=== PATIENT | female | born 1985 | race Caucasian/White ===

== ENCOUNTER 2017-12-01 23:04 | Emergency (ER) | payer SELFPAY ==
[2017-12-01 23:06] VITALS: BMI 34.0
[2017-12-01 23:26] VITALS: BP 102/69; PULSE 71; RESP 18; TEMP 99.1; O2SAT 100
--- NOTE | 2017-12-01 23:52 | C.PDOC ---
History Of Present Illness 32 year old female presents to the emergency department with complaints of itching to the rectal and buttocks area for the last two days. Patient denies constipation, rectal bleed, and drainage. Time Seen by Provider: 12/01/17 23:39 Chief Complaint (Nursing): Female Genitourinary History Per: Patient History/Exam Limitations: no limitations Onset/Duration Of Symptoms: Days (2) Current Symptoms Are (Timing): Still Present Location Of Injury: Posterior: Buttock Quality Of Symptoms: Itching Past Medical History Reviewed: Historical Data, Nursing Documentation, Vital Signs Vital Signs: Last Vital Signs Temp 99.1 F 12/01/17 23:20 Pulse 71 12/01/17 23:20 Resp 18 12/01/17 23:20 BP 102/69 12/01/17 23:20 Pulse Ox 100 12/01/17 23:20 - Medical History PMH: Gall Bladder Disease (GALLSTONES (09/2013)) Denies: Alzheimer's Disease, Anemia, Crohn's Disease, Diverticulitis, Gastritis, HIV, Pancreatitis, Chronic Kidney Disease Surgical History: Cholecystectomy - [facility] Procedures DELIVERY OF PRODUCTS OF CONCEPTION, EXTERNAL APPROACH (01/17/15) RESECTION OF GALLBLADDER, PERCUTANEOUS ENDOSCOPIC APPROACH (02/17/16) Family History: States: No Known Family Hx - Social History Hx Tobacco Use: No Hx Alcohol Use: No Hx Substance Use: No - Immunization History Hx Tetanus Toxoid Vaccination: No Hx Influenza Vaccination: Yes Hx Pneumococcal Vaccination: No Review Of Systems Except As Marked, All Systems Reviewed And Found Negative. Gastrointestinal: Negative for: Constipation, Other (rectal bleed) Skin: Positive for: Other (itching to the buttocks, NO drainage) Physical Exam - Physical Exam Appears: Non-toxic, No Acute Distress Skin: Warm, Dry, Rash (hyperpigmented rash to the gluteal folds with small amount of patchy, macular rash.), No Other (fluctuance, drainage) Head: Atraumatic, Normacephalic Eye(s): bilateral: Normal Inspection, PERRL, EOMI Oral Mucosa: Moist Neck: Normal, Supple Gastrointestinal/Abdominal: Normal Exam Rectal: Normal Exam, No Hemorrhoids, No Tenderness Neurological/Psych: Oriented x3, Normal Speech, Normal Cognition ED Course And Treatment O2 Sat by Pulse Oximetry: 100 (RA) Pulse Ox Interpretation: Normal Disposition - Disposition Referrals: [facility] [Outside] Disposition: HOME/ ROUTINE Disposition Time: 23:50 Condition: STABLE Additional Instructions: Please follow up in clinic Clean area well after bowel movements with clean wet wipes or washcloths Return to ER if worse Prescriptions: Clotrimazole/Betamethasone [Lotrisone] 15 gm EXT BID #30 g Instructions: Ringworm, Athlete's Foot, and Jock Itch Forms: [facility] Connect (Somali) Print Language: DANISH - Clinical Impression Clinical Impression: Skin rash - PA / [employer] / Resident Statement MD/DO has reviewed & agrees with the documentation as recorded. - Scribe Statement The provider has reviewed the documentation as recorded by the Scribe (Ran Reyes) All medical record entries made by the Scribe were at my direction and personally dictated by me. I have reviewed the chart and agree that the record accurately reflects my personal performance of the history, physical exam, medical decision making, and the department course for this patient. I have also personally directed, reviewed, and agree with the discharge instructions and disposition.
== END 2017-12-02 00:03 | disposition home or self-care (01) ==
LOC: C.ER 23:04 → SUPCPDRO 23:04 → C.ER 12-02 00:03
DX: R21 Rash and other nonspecific skin eruption (principal)